=== PATIENT | female | born 1970 | race Caucasian/White ===

== ENCOUNTER 2017-10-10 17:53 | Inpatient (IN) | payer OTHER ==
[~2017-10-10] VITALS: Ht 167.6 cm; Wt 76.4 kg
[2017-10-10] MEDS ORDERED: SODIUM CHLORIDE FLUSH 10ML SYR IVF ONE (18:00)
[2017-10-10] MEDS ORDERED: ONDANSETRON 2MG/ML, 2ML IVPush ONE (18:00)
[2017-10-10] MEDS ORDERED: ONDANSETRON 2MG/ML, 2ML ONE (18:24)
[2017-10-10 18:30] LABS: MD YES; MEAN CORPUSCULAR HEMOGLOBIN 20.1 pg (27.0-34.8); MEAN CORPUSCULAR HGB CONC 31.4 g/dL (32.4-35.8); MEAN CORPUSCULAR VOLUME 63.9 fL (80-100); MEAN PLATELET VOLUME 7.5 fL (7.4-10.4); PLATELET COUNT 342 x10^3/uL (130-400); RED BLOOD COUNT 4.79 x10^6/uL (3.82-5.3); RED CELL DISTRIBUTION WIDTH 19.3 % (9.6-15.2)
[2017-10-10 18:31] LABS: ALANINE AMINOTRANSFERASE 141 U/L (12-78); ALBUMIN 3.4 g/dL (3.4-5.0); ANION GAP 8 mmol/L (5-15); CALCIUM 8.3 mg/dL (8.5-10.1); CHLORIDE 109 mmol/L (98-107); CREATININE 0.67 mg/dL (0.55-1.02)
[2017-10-10 18:36] LABS: ALKALINE PHOSPHATASE 136 U/L (45-117); BILIRUBIN,TOTAL 0.7 mg/dL (0.2-1.0); TOTAL PROTEIN 7.3 g/dL (6.4-8.2)
[2017-10-10 18:50] LABS: BANDS%(MANUAL) 1 % (0-7); EOS% (MANUAL) 1 % (1-7); LYMPH#(MANUAL) 2.08 x10^3/uL (1-3.4); LYMPHS% (MANUAL) 20 % (22-44); MONOS#(MANUAL) 0.73 x10^3/uL (0.3-2.7); MONOS% (MANUAL) 7 % (2-9); SEG#(MANUAL) 7.38 x10^3/uL (1.8-6.8); SEGS% (MANUAL) 71 % (42-75)
[2017-10-10 18:52] LABS: ANISOCYTOSIS 1+; HYPOCHROMIA 1+; MICROCYTOSIS 1+
[2017-10-10 18:53] LABS: <PLATELET ESTIMATE> ADEQUATE; <PLT MORPHOLOGY> NORMAL PLT MORPH
[2017-10-10 19:04] LABS: MICROSCOPIC NOT IND
[2017-10-10 19:06] LABS: CULTURE INDICATED? NO
[2017-10-10] MEDS ORDERED: MORPHINE SULFATE 4 MG/ML, 1ML ONE ×2 (19:10→22:00)
[2017-10-10] MEDS: MORPHINE SULFATE 4 MG/ML, 1ML IVPush PRN ×2 (19:20→22:04)
[2017-10-10] MEDS ORDERED: OMNIPAQUE 350 MG/ML, 100ML BOTTLE ONE (20:16)
[2017-10-10] MEDS ORDERED: D5%-0.45% NACL 1,000 ML IV ONE (21:59)
[2017-10-10] MEDS ORDERED: MORPHINE SULFATE 4 MG/ML, 1ML IVPush PRN (22:00)
[2017-10-10] MEDS ORDERED: PIPERACILLIN/TAZO/PMX 3.375GM 50 ML IV ONE (22:00)
[2017-10-10] MEDS ORDERED: PIPERACILLIN/TAZO/PMX 3.375GM 50 ML ONE (22:00)
[2017-10-10] MEDS ORDERED: SODIUM CHLORIDE FLUSH 10ML SYR IVF PRN (22:00)
[2017-10-10] MEDS ORDERED: ONDANSETRON 2MG/ML, 2ML IVPush PRN (22:00)
[2017-10-10 22:47] VITALS: BP 128/79
[2017-10-10 23:07] VITALS: BP 131/65
[2017-10-11] MEDS ORDERED: FENTANYL PF 100 MCG/2ML ONE (00:39)
[2017-10-11] MEDS ORDERED: MIDAZOLAM 1 MG/ML, 2ML ONE ×2 (00:40)
[2017-10-11] MEDS ORDERED: EPINEPHRINE 1 MG/ML, 1ML ONE (00:42)
[2017-10-11] MEDS ORDERED: BUPIVACAINE/PF 0.5% ONE (00:42)
[2017-10-11] MEDS ORDERED: DEXAMETHASONE 4 MG/ML, 1ML ONE (00:59)
[2017-10-11] MEDS ORDERED: PROPOFOL 10 MG/ML, 20ML ONE (00:59)
[2017-10-11] MEDS ORDERED: EPHEDRINE 50 MG/ML, 1ML ONE (00:59)
[2017-10-11] MEDS ORDERED: ROCURONIUM 10 MG/ML,10ML ONE (00:59)
[2017-10-11] MEDS ORDERED: ONDANSETRON 2MG/ML, 2ML ONE (00:59)
[2017-10-11] MEDS ORDERED: SUCCINYLCHOLINE 20 MG/ML, 10ML ONE (00:59)
[2017-10-11] MEDS ORDERED: ONDANSETRON 2MG/ML, 2ML IV PRN (01:00)
[2017-10-11] MEDS ORDERED: FENTANYL PF 100 MCG/2ML IV PRN (01:00)
[2017-10-11] MEDS ORDERED: ONDANSETRON ODT 8 MG PO PRN (01:00)
[2017-10-11] MEDS ORDERED: OXYcodone 5 MG/5 ML ORAL.SOL UDC PO PRN (01:00)
[2017-10-11] MEDS ORDERED: PROMETHAZINE 12.5 MG SUPP PR PRN (01:00)
[2017-10-11] MEDS ORDERED: PROMETHAZINE 25 MG/ML, 1ML IV PRN (01:00)
[2017-10-11] MEDS ORDERED: MORPHINE SULFATE 4 MG/ML, 1ML IVPush PRN ×2 (01:00→02:00)
[2017-10-11] MEDS ORDERED: ACETAMINOPHEN 325 MG TABLET PO PRN (01:00)
[2017-10-11] MEDS ORDERED: MEPERIDINE/PF 25MG/0.5ML IVPush PRN (01:00)
[2017-10-11] MEDS ORDERED: POTASSIUM CHLORIDE 20 MEQ in D5%-0.45% NACL 1,000 ML IV SCH (01:45)
[2017-10-11] MEDS ORDERED: OXYcodone/APAP 5/325MG TABLET PO PRN (02:00)
[2017-10-11] MEDS ORDERED: DIPHENHYDRAMINE 50 MG/ML, 1ML IV PRN (02:00)
[2017-10-11] MEDS ORDERED: OXYcodone 5 MG/5 ML ORAL.SOL UDC ONE (02:00)
[2017-10-11] MEDS ORDERED: KETOROLAC 30 MG/1 ML IV PRN (02:00)
[2017-10-11] MEDS ORDERED: hydrALAzine 20 MG/ML, 1ML IV PRN (02:00)
[2017-10-11] MEDS ORDERED: ONDANSETRON 2MG/ML, 2ML IVPush PRN (02:00)
[2017-10-11 03:13] VITALS: BP 126/72
[2017-10-11 07:00] VITALS: BP 105/56
[2017-10-11 10:30] VITALS: BP 109/58
[2017-10-11] MEDS ORDERED: OXYC-302 PO (11:37)
== END 2017-10-11 12:12 | disposition home or self-care (01) | DRG 342 ==
LOC: ED 21:34 → EDIP 22:07 → 4NOR 22:42 → DCLOUNGE 10-11 11:52
PROVIDERS: ADMIT Surgery; ATTEND Surgery
PROC: 0DTJ4ZZ Resection of Appendix, Percutaneous Endoscopic Approach (ICD-10-PCS; principal; 2017-10-10)
DX: K35.80 Unspecified acute appendicitis (principal); N12 Tubulo-interstitial nephritis, not specified as acute or chronic; K59.00 Constipation, unspecified; Z98.51 Tubal ligation status
CPT/HCPCS: 36415; 74177; 80053; 81003; 83690; 84703; 85025; 88304; J0171; J1100; J1885; J2250; J2405; J2543; J2704; J3010; J3480; J3490; Q9967; J0330; J1200